=== PATIENT | male | born 1945 | race Caucasian/White ===

== ENCOUNTER 2018-11-14 10:41 | Emergency (ER) | payer MEDICAID, MEDICARE ==
[2018-11-14 11:34] VITALS: BP 150/74
[2018-11-14 12:03] LABS: ANION GAP 14.1
--- NOTE | 2018-11-14 14:27 | EDM.PDOC ---
Scribed by Minerva Peralta 11/14/18 [id number] for Sue Farah NP ED HPI GENERAL MEDICAL PROBLEM - General Chief Complaint: Respiratory Problem Stated Complaint: SORETHROAT,COUGH,RESPIRATORY [id number] Time Seen by Provider: 11/14/18 11:18 Source of Information: Reports: Patient, RN, RN Notes Reviewed History Limitations: Reports: No Limitations - History of Present Illness INITIAL COMMENTS - FREE TEXT/NARRATIVE: Patient presents to ER with complaint of productive cough green and sore throat. On Friday he slept upright in a chair. He has had fever, chills that come and go, and chest pain from cough. No nausea, vomiting, diarrhea or shortness of breath. Onset: Gradual Duration: Getting Worse Location: Reports: Chest Severity: Mild Improves with: Reports: None Worsens with: Reports: None Associated Symptoms: Reports: No Other Symptoms Throat Pain Score (Numeric/FACES): 9 - Related Data Allergies Allergy/AdvReac Type Severity Reaction Status Date / Time No Known Allergies Allergy Verified 11/14/18 11:09 Home Meds: Home Meds Aspirin 81 mg PO DAILY 06/13/15 [History] Past Medical History - Past Health History Medical/Surgical History: Denies Medical/Surgical History Cardiovascular History: Reports: Hypertension Social & Family History - Family History Respiratory: Reports: COPD Other Respiratory Family Hisory: sister with COPD Neurological: Reports: CVA - Tobacco Use Smoking Status *Q: Current Every Day Smoker - Caffeine Use Caffeine Use: Reports: Coffee - Living Situation & Occupation Living situation: Reports: , with Spouse ED ROS GENERAL - Review of Systems Review Of Systems: ROS reveals no pertinent complaints other than HPI. ED EXAM, GENERAL - Physical Exam Exam: See Below Exam Limited By: No Limitations General Appearance: Alert, WD/WN, No Apparent Distress Eye Exam: Bilateral Eye: EOMI, Normal Inspection, PERRL Ears: Normal External Exam, Normal Canal, Hearing Grossly Normal, Normal TMs Nose: Normal Inspection, Normal Mucosa, No Blood Throat/Mouth: Other (throat left exudates) Head: Atraumatic, Normocephalic Neck: Other (left anterior cervical +2. ) Respiratory/Chest: Other (diminished and clear) Cardiovascular: Normal Peripheral Pulses, Regular Rate, Rhythm, No Edema, No Gallop, No JVD, No Murmur, No Rub GI/Abdominal: Normal Bowel Sounds, Soft, Non-Tender, No Organomegaly, No Distention, No Abnormal Bruit, No Mass (Male) Exam: Deferred Rectal (Males) Exam: Deferred Back Exam: Other (ribs tender from cough) Extremities: Normal Inspection, Normal Range of Motion, Non-Tender, Normal Capillary Refill, No Pedal Edema Neurological: Alert, Oriented, CN II-XII Intact, Normal Cognition, Normal Gait, Normal Reflexes, No Motor/Sensory Deficits Psychiatric: Normal Affect, Normal Mood Skin Exam: Warm, Dry, Intact, Normal Color, No Rash Lymphatic: Other (anterior cervical +2 left.) Course - Vital Signs Last Recorded V/S: Last Vital Signs Temp 98.7 F 11/14/18 11:28 Pulse 98 11/14/18 11:28 Resp 16 11/14/18 11:28 BP 150/74 H 11/14/18 11:28 Pulse Ox 97 11/14/18 11:28 - Orders/Labs/Meds Orders: Active Orders 24 hr Category Date Time Status CULTURE STREP A CONFIRMATION [] Stat Lab 11/14/18 11:15 Results STREP SCRN A RAPID W CULT CONF [] Stat Lab 11/14/18 11:15 Results Labs: Laboratory Tests 11/14/18 11/14/18 Range/Units 11:37 11:37 WBC 14.6 H (5.0-10.0) 10^3/uL RBC 4.82 (4.6-6.2) 10^6/uL Hgb 13.3 L (14.0-18.0) g/dL Hct 40.8 (40.0-54.0) % MCV 84.6 (80-100) fL MCH 27.6 (27.0-34.0) pg MCHC 32.6 L (33.0-35.0) g/dL Plt Count 368 (150-450) 10^3/uL Neut % (Auto) 76.9 H (42.2-75.2) % Lymph % (Auto) 12.5 L (20.5-50.1) % Green % (Auto) 8.5 H (2-8) % Eos % (Auto) 1.8 (1.0-3.0) % Baso % (Auto) 0.3 (0.0-1.0) % Sodium 136 (135-145) mmol/L Potassium 3.1 L (3.6-5.0) mmol/L Chloride 94 L (101-111) mmol/L Carbon Dioxide 31.0 (21.0-31.0) mmol/L Anion Gap 14.1 BUN 16 (7-18) mg/dL Creatinine 1.2 (0.6-1.3) mg/dL Est Cr Clr Drug Dosing 52.25 mL/min Estimated GFR (MDRD) 59 BUN/Creatinine Ratio 13.33 Glucose 101 (74-105) mg/dL Calcium 8.8 (8.4-10.2) mg/dl Total Bilirubin 0.8 (0.2-1.0) mg/dL AST 20 (10-42) IU/L ALT 19 (10-60) IU/L Alkaline Phosphatase 48 (42-121) IU/L Total Protein 7.5 (6.7-8.2) g/dl Albumin 3.9 (3.2-5.5) g/dl Globulin 3.6 Albumin/Globulin Ratio 1.08 Rapid strep: Negative. - Radiology Interpretation Free Text/Narrative:: Chest xray: FINDINGS: Lungs: Unremarkable. No consolidation. Pleural space: Unremarkable. No pleural effusion. No pneumothorax. Heart/Mediastinum: Unremarkable. No cardiomegaly. Bones/joints: Unremarkable. IMPRESSION: No acute findings. Thank you for allowing us to participate in the care of your patient. Dictated and Authenticated by: Chidi Rush MD 11/14/2018 12:46 PM Central Time ([place] & [place]) See rad report Departure - Departure Time of Disposition: 12:34 Disposition: Home, Self-Care 01 Condition: Fair Clinical Impression: Acute bronchitis Qualifiers: Bronchitis organism: unspecified organism Qualified Code(s): J20.9 - Acute bronchitis, unspecified - Discharge Information *PRESCRIPTION DRUG MONITORING PROGRAM REVIEWED*: No *COPY OF PRESCRIPTION DRUG MONITORING REPORT IN PATIENT JAVON: No Instructions: Chronic Obstructive Pulmonary Disease Exacerbation, [id number] , Steps to Quit Smoking, [id number], Acute Bronchitis, Adult, [id number], Upper Respiratory Infection, Adult, [id number] Referrals: PCP,None [Primary Care Provider] - Forms: ED Department Discharge Additional Instructions: RX: Cheratussin, Albuterol Inhaler, Amoxicillin, Albuterol Nebulizer Follow up with your primary care facility if no improvement May use Tylenol as directed for pain - My Orders Last 24 Hours: My Active Orders 11/14/18 11:15 CULTURE STREP A CONFIRMATION [RM] Stat STREP SCRN A RAPID W CULT CONF [RM] Stat - Assessment/Plan Last 24 Hours: My Active Orders 11/14/18 11:15 CULTURE STREP A CONFIRMATION [RM] Stat STREP SCRN A RAPID W CULT CONF [RM] Stat I have read and agree with the documentation that has been completed regarding this visit. By signing this record, I attest that the documentation was completed in my physical presence and is an accurate record of the encounter.
== END 2018-11-14 12:41 | disposition home or self-care (01) ==
LOC: DL.ED 10:41
DX: J20.9 Acute bronchitis, unspecified (principal); F17.200 Nicotine dependence, unspecified, uncomplicated; I10 Essential (primary) hypertension; Z79.82 Long term (current) use of aspirin
CPT/HCPCS: 36415; 71046; 80053; 85025; 87081; 87430; 99283-25

== ENCOUNTER 2021-05-19 23:15 | Emergency (ER) | payer OTHER, MEDICARE ==
[2021-05-19 23:40] VITALS: BP 143/59; PULSE 123
--- NOTE | 2021-05-19 23:50 | EDM.PDOC ---
ED HPI GENERAL MEDICAL PROBLEM - General Chief Complaint: Respiratory Problem Stated Complaint: COUGH, FEVER Time Seen by Provider: 05/19/21 23:35 Source of Information: Reports: Patient History Limitations: Reports: No Limitations - History of Present Illness INITIAL COMMENTS - FREE TEXT/NARRATIVE: This 75 yo male patient reports to the ED with a 2 week history of a cough that has gotten worse over the past 4 days. The patient reports he is a cigarette smoker and has smoked for 65 years. [facility] and started on some cough medication, but his cough has continued. Onset: Gradual Duration: Week(s):, Constant, Resolved Prior to Arrival Location: Reports: Chest Quality: Reports: Other Severity: Moderate Improves with: Reports: None Worsens with: Reports: None Context: Reports: Other Associated Symptoms: Reports: Cough, Fever/Chills - Related Data Allergies Allergy/AdvReac Type Severity Reaction Status Date / Time No Known Allergies Allergy Verified 05/19/21 23:42 Home Meds: Home Meds Aspirin 81 mg PO DAILY 06/13/15 [History] atorvaSTATin [Lipitor] 40 mg PO DAILY 05/19/21 [History] guaiFENesin [Mucus Relief ER] 1,200 mg PO BID 05/19/21 [History] Past Medical History - Past Health History Medical/Surgical History: Denies Medical/Surgical History Cardiovascular History: Reports: Hypertension Neurological History: Reports: CVA Social & Family History - Family History Family Medical History: No Pertinent Family History Respiratory: Reports: COPD Other Respiratory Family Hisory: sister with COPD Neurological: Reports: CVA - Tobacco Use Tobacco Use Status *Q: Current Every Day Tobacco User Years of Tobacco use: 65 Packs/Tins Daily: 1 - Caffeine Use Caffeine Use: Reports: Coffee - Recreational Drug Use Recreational Drug Use: No - Living Situation & Occupation Living situation: Reports: , with Spouse ED ROS GENERAL - Review of Systems Review Of Systems: Comprehensive ROS is negative, except as noted in HPI. ED EXAM, GENERAL - Physical Exam Exam: See Below Exam Limited By: No Limitations General Appearance: Alert, WD/WN, Moderate Distress, Thin Eye Exam: Bilateral Eye: EOMI, Normal Inspection, PERRL Ears: Normal External Exam, Normal Canal, Hearing Grossly Normal, Normal TMs Nose: Normal Inspection, Normal Mucosa, No Blood Throat/Mouth: Normal Inspection, Normal Lips, Normal Teeth, Normal Gums, Normal Oropharynx, Normal Voice, No Airway Compromise Head: Atraumatic, Normocephalic Neck: Normal Inspection, Supple, Non-Tender, Full Range of Motion Respiratory/Chest: Decreased Breath Sounds, Crackles Cardiovascular: Normal Peripheral Pulses, Regular Rate, Rhythm, No Edema, No Gallop, No JVD, No Murmur, No Rub GI/Abdominal: Normal Bowel Sounds, Soft, Non-Tender, No Organomegaly, No Distention, No Abnormal Bruit, No Mass (Male) Exam: Deferred Rectal (Males) Exam: Deferred Back Exam: Normal Inspection, Full Range of Motion, NT Extremities: Normal Inspection, Normal Range of Motion, Non-Tender, Normal Capillary Refill, No Pedal Edema Neurological: Alert, Oriented, CN II-XII Intact, Normal Cognition, Normal Gait, Normal Reflexes, No Motor/Sensory Deficits Psychiatric: Normal Affect, Normal Mood Skin Exam: Warm, Dry, Intact, Normal Color, No Rash Lymphatic: No Adenopathy Course - Vital Signs Last Recorded V/S: Last Vital Signs Temp 99.4 F 05/19/21 23:38 Pulse 123 H 05/19/21 23:38 Resp 18 05/19/21 23:38 BP 143/59 H 05/19/21 23:38 Pulse Ox 95 05/19/21 23:38 - Orders/Labs/Meds Labs: Laboratory Tests 05/19/21 Range/Units 23:30 Influenza Type A RNA Negative (NEGATIVE) Influenza Type B RNA Negative (NEGATIVE) SARS-CoV-2 RNA (GONZALEZ) Negative (NEGATIVE) Meds: Medications Discontinued Medications Generic Name Dose Route Start Last Admin Trade Name Christiano PRN Reason Stop Dose Admin Levofloxacin 500 mg 05/20/21 00:32 Levofloxacin 500 Mg Tab PO 05/20/21 00:33 ONETIME ONE Prednisone 40 mg 05/20/21 00:32 Prednisone 20 Mg Tab PO 05/20/21 00:33 ONETIME ONE Departure - Departure Time of Disposition: 00:35 Disposition: Home, Self-Care 01 Condition: Fair Clinical Impression: COPD exacerbation - Discharge Information *PRESCRIPTION DRUG MONITORING PROGRAM REVIEWED*: Not Applicable *COPY OF PRESCRIPTION DRUG MONITORING REPORT IN PATIENT JAVON: Not Applicable Instructions: Chronic Obstructive Pulmonary Disease Exacerbation, [id number] Forms: ED Department Discharge Care Plan Goals: The patient was advised of the examination and lab results during the visit. The patient was given an oral dose of Prednisone and Levaquin while in the ED. The patient was discharged with scripts for 1) Levaquin (500 mg) #7 to take 1 by mouth daily for 7 days and Prednisone (20 mg) #10 to take 2 by mouth daily. If the patient has any additional symptoms or concerns, the patient should either return to the emergency department or visit his primary care facility. Sepsis Event Note (ED) - Evaluation Sepsis Screening Result: No Definite Risk - Focused Exam Vital Signs: Vital Signs Temp Pulse Resp BP Pulse Ox 05/19/21 23:38 99.4 F 123 H 18 143/59 H 95
[2021-05-20 00:17] LABS: CORONAVIRUS COVID-19 NAA NEGATIVE (NEGATIVE)
[2021-05-20] MEDS ORDERED: Levofloxacin 500 MG Tab PO ONE (00:32)
[2021-05-20] MEDS ORDERED: predniSONE 20 MG Tab PO ONE (00:32)
== END 2021-05-20 00:39 | disposition home or self-care (01) ==
LOC: DL.ED 23:15
DX: J44.1 Chronic obstructive pulmonary disease with (acute) exacerbation (principal); I10 Essential (primary) hypertension; F17.210 Nicotine dependence, cigarettes, uncomplicated; Z79.82 Long term (current) use of aspirin; Z20.822 Contact with and (suspected) exposure to COVID-19
CPT/HCPCS: 0240U; 99283; A9270; J7512

== ENCOUNTER 2022-05-24 20:38 | Emergency (ER) | payer OTHER, MEDICARE ==
[2022-05-24 21:35] VITALS: BP 138/57; PULSE 80
[2022-05-24 22:07] LABS: CORONAVIRUS COVID-19 NAA NEGATIVE (NEGATIVE); RESPIRATORY SYNCYTIAL VIR NAA NEGATIVE (NEGATIVE)
== END 2022-05-24 22:21 | disposition home or self-care (01) ==
LOC: DL.ED 20:38
DX: J10.1 Influenza due to other identified influenza virus with other respiratory manifestations (principal); E78.00 Pure hypercholesterolemia, unspecified; I10 Essential (primary) hypertension; F17.210 Nicotine dependence, cigarettes, uncomplicated; Z86.73 Personal history of transient ischemic attack (TIA), and cerebral infarction without residual deficits; Z79.82 Long term (current) use of aspirin; Z79.899 Other long term (current) drug therapy; Z20.822 Contact with and (suspected) exposure to COVID-19
CPT/HCPCS: 0241U; 99284

== ENCOUNTER 2023-11-14 06:28 | Day surgery (SDC) | payer OTHER ==
[~2023-11-14 06:28] MED LIST: Proparacaine 0.5% Ophth Soln 15 ML Bottle ONE
[2023-11-14] MEDS ORDERED: Ondansetron 4 MG/2 ML SDV IVPUSH PRN (06:30)
[2023-11-14] MEDS ORDERED: Acetaminophen 325 MG Tab PO PRN (06:30)
[2023-11-14] MEDS ORDERED: Acetaminophen/Codeine 300-30 MG Tab PO PRN (06:30)
[2023-11-14] MEDS: Proparacaine 0.5% Ophth Soln 15 ML Bottle EYELF ONE ×2 (06:49→07:50)
[2023-11-14] MEDS: Moxifloxacin 0.5% Ophth Soln 3 ML Bottle EYELF ONE (06:50)
[2023-11-14] MEDS: Povidone-Iodine 5% Sterile Ophth Soln 30 ML Bottle EYELF ONE ×2 (06:51→07:50)
[2023-11-14] MEDS: Tropicamide 1% Ophth Soln 15 ML Bottle EYELF ONE (06:52)
[2023-11-14] MEDS: Phenylephrine 10% Ophth Soln 5 ML Bot EYELF ONE (06:53)
[2023-11-14] MEDS: Cataract Ophth Solution EYELF ONE (06:53)
[2023-11-14] MEDS: Timolol Maleate 0.5% Ophth Soln 5 ML Bottle EYELF ONE (06:53)
[2023-11-14] MEDS: Sodium Chloride 0.9% 10 ML Syringe FLUSH PRN (06:59)
[2023-11-14] MEDS: Lidocaine 1% 30 ML SDV ONE (08:01)
[2023-11-14] MEDS: Dexamethasone 0.1% Ophth Soln 5 ML Bottle EYELF ONE (08:01)
[2023-11-14] MEDS: Vancomycin 500 MG SDV EYELF ONE (08:02)
[2023-11-14] MEDS: Diclofenac Sodium 0.1% Ophth Soln 5 ML Bottle EYELF ONE (08:03)
[2023-11-14] MEDS: Apraclonidine 0.5% Ophth Soln 5 ML Bot EYELF ONE (08:03)
[2023-11-14] MEDS: Dexamethasone/Neomycin/Polymyxin B Ophth Oint 3.5 GM Tube EYELF ONE (08:03)
[2023-11-14 08:35] VITALS: BP 144/54; PULSE 64
== END 2023-11-14 08:40 | disposition home or self-care (01) ==
LOC: DL.SDS 06:28
PROVIDERS: ATTEND Ophthalmology
DX: H25.812 Combined forms of age-related cataract, left eye (principal); I10 Essential (primary) hypertension; E78.5 Hyperlipidemia, unspecified; J47.9 Bronchiectasis, uncomplicated; Z79.899 Other long term (current) drug therapy; D64.9 Anemia, unspecified
CPT/HCPCS: 00142; 66984; 99100; A9270; J3370; V2787; J3490

== ENCOUNTER 2023-12-24 06:25 | Day surgery (SDC) | payer OTHER ==
[2023-12-24] MEDS ORDERED: Ondansetron 4 MG/2 ML SDV IVPUSH PRN (06:30)
[2023-12-24] MEDS ORDERED: Acetaminophen 325 MG Tab PO PRN (06:30)
[2023-12-24] MEDS ORDERED: Acetaminophen/Codeine 300-30 MG Tab PO PRN (06:30)
[2023-12-24] MEDS ORDERED: Dexamethasone 4 MG/ML SDV ONE (07:13)
[2023-12-24] MEDS: Sodium Chloride 0.9% 10 ML Syringe FLUSH PRN (07:22)
[2023-12-24] MEDS: Proparacaine 0.5% Ophth Soln 15 ML Bottle EYERT ONE ×2 (07:25→07:50)
[2023-12-24] MEDS: Moxifloxacin 0.5% Ophth Soln 3 ML Bottle EYERT ONE (07:26)
[2023-12-24] MEDS: Povidone-Iodine 5% Sterile Ophth Soln 30 ML Bottle EYERT ONE ×2 (07:27→07:50)
[2023-12-24] MEDS: Tropicamide 1% Ophth Soln 15 ML Bottle EYERT ONE (07:29)
[2023-12-24] MEDS: Phenylephrine 10% Ophth Soln 5 ML Bot EYERT ONE (07:30)
[2023-12-24] MEDS: Timolol Maleate 0.5% Ophth Soln 5 ML Bottle EYERT ONE (07:31)
[2023-12-24] MEDS: Cataract Ophth Solution EYERT ONE (07:32)
[2023-12-24] MEDS: Diclofenac Sodium 0.1% Ophth Soln 5 ML Bottle EYERT ONE (07:50)
[2023-12-24] MEDS: Apraclonidine 0.5% Ophth Soln 5 ML Bot EYERT ONE (07:50)
[2023-12-24] MEDS: Lidocaine 1% 30 ML SDV ONE (07:55)
[2023-12-24] MEDS: Dexamethasone/Neomycin/Polymyxin B Ophth Oint 3.5 GM Tube EYERT ONE (07:58)
[2023-12-24] MEDS: Vancomycin 500 MG SDV EYERT ONE (07:59)
[2023-12-24] MEDS: Dexamethasone 4 MG/ML SDV IOCULAR ONE (08:00)
[2023-12-24 08:27] VITALS: BP 122/60; PULSE 64
== END 2023-12-24 08:40 | disposition home or self-care (01) ==
LOC: DL.SDS 06:25
PROVIDERS: ATTEND Ophthalmology
DX: H25.811 Combined forms of age-related cataract, right eye (principal); E78.00 Pure hypercholesterolemia, unspecified; I10 Essential (primary) hypertension; J44.9 Chronic obstructive pulmonary disease, unspecified; Z79.899 Other long term (current) drug therapy
CPT/HCPCS: A9270-GY; J1100; J3370; J3490; V2787-GY

== ENCOUNTER 2024-06-08 06:54 | Day surgery (SDC) | payer OTHER ==
[2024-06-08] MEDS: Dextrose 5%-0.45% NaCl 1,000 ML IV SCH (07:18)
[2024-06-08] MEDS ORDERED: fentaNYL 100 MCG/2 ML SDV ONE (07:19)
[2024-06-08] MEDS ORDERED: Midazolam 1 MG/ML 2 ML SDV IV ONE (07:19)
[2024-06-08] MEDS ORDERED: fentaNYL 100 MCG/2 ML SDV IV ONE (07:19)
[2024-06-08] MEDS ORDERED: Midazolam 1 MG/ML 2 ML SDV ONE (07:19)
[2024-06-08] MEDS: fentaNYL 100 MCG/2 ML SDV IV ONE ×2 (08:11→08:12)
[2024-06-08] MEDS: Midazolam 1 MG/ML 2 ML SDV IV ONE ×2 (08:11→08:13)
[2024-06-08 09:28] VITALS: BP 107/51; PULSE 51
== END 2024-06-08 09:46 | disposition home or self-care (01) ==
LOC: DL.ENDO 06:54
PROVIDERS: ATTEND Internal Medicine Gastroenterology
DX: K29.50 Unspecified chronic gastritis without bleeding (principal); D64.9 Anemia, unspecified; J44.9 Chronic obstructive pulmonary disease, unspecified; I65.29 Occlusion and stenosis of unspecified carotid artery; F17.200 Nicotine dependence, unspecified, uncomplicated
CPT/HCPCS: 43239; J2250; J3010; J7799

== ENCOUNTER 2024-06-14 06:25 | Day surgery (SDC) | payer OTHER ==
[2024-06-14] MEDS: Dextrose 5%-0.45% NaCl 1,000 ML IV SCH (06:45)
[2024-06-14] MEDS ORDERED: fentaNYL 100 MCG/2 ML SDV ONE (06:53)
[2024-06-14] MEDS ORDERED: fentaNYL 100 MCG/2 ML SDV IV ONE (06:53)
[2024-06-14] MEDS ORDERED: Midazolam 1 MG/ML 2 ML SDV ONE (06:53)
[2024-06-14] MEDS ORDERED: Midazolam 1 MG/ML 2 ML SDV IV ONE (06:53)
[2024-06-14] MEDS: fentaNYL 100 MCG/2 ML SDV IV ONE ×3 (07:31→07:38)
[2024-06-14] MEDS: Midazolam 1 MG/ML 2 ML SDV IV ONE ×7 (07:32→08:01)
[2024-06-14] MEDS: Sodium Chloride 0.9% 1,000 ML IV SCH (08:06)
[2024-06-14 08:56] VITALS: BP 107/64; PULSE 59
== END 2024-06-14 09:20 | disposition home or self-care (01) ==
LOC: DL.ENDO 06:25
PROVIDERS: ATTEND Internal Medicine Gastroenterology
DX: D50.9 Iron deficiency anemia, unspecified (principal); K57.30 Diverticulosis of large intestine without perforation or abscess without bleeding; J44.9 Chronic obstructive pulmonary disease, unspecified; F17.210 Nicotine dependence, cigarettes, uncomplicated
CPT/HCPCS: J2250; J3010; J7030; J7799

== ENCOUNTER 2024-09-17 15:54 | Emergency (ER) | payer OTHER ==
[2024-09-17 16:12] VITALS: BP 130/49; PULSE 86
[2024-09-17] MEDS ORDERED: Sodium Chloride 0.9% 10 ML Syringe FLUSH PRN (16:13)
[2024-09-17 16:24] LABS: BASOPHILS PERCENT AUTO 0.9 % (0.0-1.0); EOSINOPHILS PERCENT AUTO 2.1 % (1.0-3.0); HEMATOCRIT 26.6 % (40.0-54.0); HEMOGLOBIN 7.6 g/dL (14.0-18.0); LYMPHOCYTES PERCENT AUTO 14.2 % (20.5-50.1); MEAN CORPUSCULAR HEMOGLOBIN 20.6 pg (27.0-34.0); MEAN CORPUSCULAR HGB CONC 28.6 g/dL (33.0-35.0); MEAN CORPUSCULAR VOLUME 72.1 fL (80-100); MONOCYTES PERCENT AUTO 11.3 % (2-8); NEUTROPHILS PERCENT AUTO 71.5 % (42.2-75.2); PLATELET COUNT,PLT 349 10^3/uL (150-450); RED BLOOD CELL COUNT 3.69 10^6/uL (4.6-6.2)
[2024-09-17 16:44] LABS: ALANINE AMINOTRANSFERASE,ALT 21 U/L (16-63); ALBUMIN 3.7 g/dL (3.4-5.0); ALKALINE PHOSPHATASE 78 U/L (46-116); ANION GAP 12.3 mEq/L (7-13); ASPARTATE AMNIOTRANSFERASE,AST 18 U/L (15-37); BILIRUBIN TOTAL 0.3 mg/dL (0.2-1.0); BLOOD UREA NITROGEN,BUN 21 mg/dL (7-18); BUN/CREATININE RATIO 12.6 (No establ ref range); CALCIUM 9.2 mg/dL (8.5-10.1); CARBON DIOXIDE,CO2 32 mmol/L (21-32); CHLORIDE,CL 101 mmol/L (98-107); CREATININE 1.67 mg/dL (0.70-1.30); EST CRCL DRUG DOSING (CG) 31.84 mL/min; GLUCOSE RANDOM 133 mg/dL (70-99); LACTATE DEHYDROGENASE,LDH 165 U/L (85-227); MAGNESIUM 2.2 mg/dL (1.8-2.4); POTASSIUM,K 4.3 mmol/L (3.5-5.1); PROTEIN TOTAL,TP 7.3 g/dL (6.4-8.2); SODIUM,NA 141 mmol/L (136-145)
[2024-09-17 16:47] LABS: C-REACTIVE PROTEIN < 0.50 ng/dL (<=0.50); ESTIMATED GFR 41 mL/min (>=60)
[2024-09-17 17:10] LABS: FERRITIN 5 mg/mL (26-388); IRON,FE 13 ug/dL (65-175)
[2024-09-17] MEDS: Sodium Chloride 0.9% 1,000 ML IV ONE (17:45)
[2024-09-17] MEDS: ferumoxytoL 500 MG in Sodium Chloride 0.9% 100 ML IV ONE (17:52)
[2024-09-20] MEDS: ferumoxytoL 1,020 MG in Sodium Chloride 0.9% 100 ML IV ONE (14:13)
== END 2024-09-17 18:44 | disposition home or self-care (01) ==
LOC: DL.ED 15:54
DX: D50.9 Iron deficiency anemia, unspecified (principal); A31.9 Mycobacterial infection, unspecified; E78.00 Pure hypercholesterolemia, unspecified; I10 Essential (primary) hypertension; Z86.16 Personal history of COVID-19; Z79.899 Other long term (current) drug therapy; Z79.82 Long term (current) use of aspirin
CPT/HCPCS: 36415; 80053; 82728; 83540; 83550; 83615; 83735; 85025; 86140; 96361; 96365; 99284; J7030; Q0138